=== PATIENT | male | born 1945 | race Caucasian/White ===

== ENCOUNTER 2019-01-11 09:10 | Emergency (ER) | payer OTHER ==
[~2019-01-11] VITALS: Ht 170.2 cm; Wt 89.8 kg
[2019-01-11] MEDS ORDERED: LASIX20 MG PO (09:23)
[2019-01-11] MEDS ORDERED: LISINOPRIL10 MG PO (09:23)
[2019-01-11] MEDS ORDERED: ALLOPURINOL300 MG PO (09:23)
[2019-01-11] MEDS ORDERED: LOVASTATIN20 MG PO (09:23)
== END 2019-01-11 09:30 | disposition home or self-care (01) ==
LOC: ER 09:10
DX: B02.9 Zoster without complications (principal); I10 Essential (primary) hypertension; E78.5 Hyperlipidemia, unspecified; J44.9 Chronic obstructive pulmonary disease, unspecified; M10.9 Gout, unspecified
CPT/HCPCS: 99282